=== PATIENT | male | born 1960 | race Asian ===

== ENCOUNTER 2017-06-24 07:10 | Day surgery (SDC) | payer OTHER ==
[~2017-06-24] VITALS: Ht 160 cm; Wt 50.0 kg
[~2017-06-24 07:10] MED LIST: SODIUM CHLORIDE 0.9% 1,000 ML IV ONE
[2017-06-24] MEDS ORDERED: BENZOCAINE 20% 50 MCG/SPRAY 57 GM TP ONE (07:11)
[2017-06-24] MEDS ORDERED: LIDOCAINE HCL 4% 50 ML SOLUTION TP ONE (07:11)
[2017-06-24] MEDS ORDERED: ALBUTEROL SULFATE 2.5 MG/0.5 ML NEB SOLUTION NEB ONE (07:11)
[2017-06-24] MEDS ORDERED: LIDOCAINE HCL 2% 30 ML JELLY TP ONE (07:11)
[2017-06-24] MEDS ORDERED: MIDAZOLAM HCL 2 MG/2 ML VIAL ONE (07:47)
[2017-06-24] MEDS ORDERED: FentaNYL CITRATE-PF 100 MCG/2 ML VIAL ONE (07:47)
[2017-06-24] MEDS ORDERED: MethylPREDNISolone SOD SUCC 125 MG/2 ML VIAL IVP ONE (09:15)
[2017-06-24] MEDS ORDERED: MethylPREDNISolone SOD SUCC 125 MG/2 ML VIAL ONE (09:45)
[2017-06-24] MEDS ORDERED: OXYGEN THERAPY IH SCH (20:00)
== END 2017-06-24 10:35 | disposition home or self-care (01) ==
LOC: SURGERY 07:10
PROVIDERS: ATTEND Internal Medicine Critical Care Medicine
DX: J98.09 Other diseases of bronchus, not elsewhere classified (principal); J38.4 Edema of larynx; B37.0 Candidal stomatitis; F17.210 Nicotine dependence, cigarettes, uncomplicated
CPT/HCPCS: 31623; 31624; 71010; 87015 ×2; 87070; 87101; 87147; 87205; 87220; 88108; 88312; J2250; J2930; J3010; J7030